=== PATIENT | male | born 1970 | race African-American/Black ===

== ENCOUNTER 2022-01-17 13:42 | Emergency (ER) | payer OTHER ==
[2022-01-17 14:27] VITALS: BP 126/72; PULSE 84; RESP 18; TEMP 98; BMI 34.0
[2022-01-17] MEDS ORDERED: DIPHTH,PERTUSS(ACELL),TET 0.5 ML DISP.SYRIN IM ONE ×2 (15:15→15:49)
[2022-01-17] MEDS ORDERED: ACETAMINOPHEN 500 MG TABLET (FP) PO ONE (15:41)
[2022-01-17] MEDS ORDERED: ACETAMINOPHEN 325 MG TABLET (FP) ONE (15:48)
== END 2022-01-17 18:00 | disposition home or self-care (01) ==
LOC: JER 13:42
PROC: 0HQGXZZ Repair Left Hand Skin, External Approach (ICD-10-PCS; principal; 2022-01-17)
PROC: 3E0234Z Introduction of Serum, Toxoid and Vaccine into Muscle, Percutaneous Approach (ICD-10-PCS; 2022-01-17)
DX: S61.012A Laceration without foreign body of left thumb without damage to nail, initial encounter (principal); W26.0XXA Contact with knife, initial encounter
CPT/HCPCS: 73140-TC-LT-FY; 90715; 99284-25